=== PATIENT | female | born 1970 | race African-American/Black ===

== ENCOUNTER 2020-03-22 01:50 | Emergency (ER) | payer MEDICAID ==
[~2020-03-22] VITALS: Ht 154.9 cm; Wt 53.0 kg
[2020-03-22] MEDS ORDERED: KETOROLAC 30MG/ML VIAL IM ONE (02:45)
[2020-03-22 02:51] VITALS: BP 145/101
== END 2020-03-22 03:28 | disposition home or self-care (01) ==
LOC: ER 01:50
DX: M25.561 Pain in right knee (principal); Z90.49 Acquired absence of other specified parts of digestive tract
CPT/HCPCS: 96372; 99283; J1885

== ENCOUNTER 2022-02-21 03:11 | Emergency (ER) | payer MEDICAID, OTHER ==
[~2022-02-21] VITALS: Ht 157.5 cm; Wt 60.0 kg
[2022-02-21] MEDS ORDERED: ACETAMINOPHEN 325MG TABLET PO ONE (06:45)
[2022-02-21] MEDS ORDERED: T3 PO (06:59)
[2022-02-21 07:40] VITALS: BP 132/76
== END 2022-02-21 07:37 | disposition home or self-care (01) ==
LOC: ER 03:11
DX: M25.562 Pain in left knee (principal); M25.512 Pain in left shoulder; M79.89 Other specified soft tissue disorders
CPT/HCPCS: 73030; 73560; 99284